=== PATIENT | male | born 1955 | race Caucasian/White ===

== ENCOUNTER → 2024-01-11 | Outpatient (CLI) | payer MEDICARE ==
--- NOTE | 2024-01-11 14:38 | HMCIMG ---
CHEST 1VW HISTORY: VQ scan COMPARISON: None FINDINGS: A frontal projection of the chest was obtained. Prominent interstitial markings are seen with possible superimposed infiltrates. Small left pleural effusion is seen. The heart is borderline enlarged. Left humeral prosthesis is seen. No evidence of aortic calcification is seen. IMPRESSION: 1. Prominent interstitial markings are seen with possible superimposed infiltrates.
--- NOTE | 2024-01-11 14:44 | HMCIMG ---
NM PULMONARY/LUNG VENT/PERF VQ HISTORY: Post CABG, atherosclerosis COMPARISON: None TECHNIQUE: Ventilation study was performed with 5 mCi of Xenon gas through inhalation route. Perfusion lung imaging study was performed with 5 mCi of technetium macroaggregated through intravenous route. FINDINGS: There is no evidence of segmental or subsegmental perfusion defect. Nonsegmental perfusion defects are also present. IMPRESSION: 1. Low probability for pulmonary embolus.
== END | disposition home or self-care (01) ==
LOC: RAH 12:54
PROVIDERS: ATTEND Internal Medicine Cardiovascular Disease
DX: I25.790 Atherosclerosis of other coronary artery bypass graft(s) with unstable angina pectoris (principal); J98.4 Other disorders of lung; Z95.1 Presence of aortocoronary bypass graft
CPT/HCPCS: 78582; 71045; A9540; A9558